=== PATIENT | male | born 1990 | race Caucasian/White ===

== ENCOUNTER 2021-09-07 11:46 | Emergency (ER) | payer OTHER, MEDICAID ==
[~2021-09-07] VITALS: Ht 190.5 cm; Wt 147.4 kg
[~2021-09-07 11:46] MED LIST: IBUPROFEN 800800 MG PO; NORCO 5-325 TA1 EACH PO; PENICILLIN V P500 MG PO
[2021-09-07] MEDS ORDERED: HUMARA (12:10)
[2021-09-07 14:11] VITALS: BP 113/70
== END 2021-09-07 14:12 | disposition home or self-care (01) ==
LOC: M.ERS 11:46
DX: U07.1 COVID-19 (principal); M25.532 Pain in left wrist; L40.9 Psoriasis, unspecified; F17.210 Nicotine dependence, cigarettes, uncomplicated; Z79.899 Other long term (current) drug therapy; W01.0XXA Fall on same level from slipping, tripping and stumbling without subsequent striking against object, initial encounter; Y93.01 Activity, walking, marching and hiking; Y92.89 Other specified places as the place of occurrence of the external cause; Y99.8 Other external cause status